=== PATIENT | male | born 1965 | race Caucasian/White ===

== ENCOUNTER → 2018-02-28 07:03 | Day surgery (SDC) | payer OTHER, MEDICARE ==
[~2018-02-28 07:03] MED LIST: Heparin 2 UNITS/ML IVPREMIX* 3,000 ML IV ONE; Heparin(*) 1000 UNIT/ML 10 ML VIAL CATH LAB IV ONE; Iohexol 350 (CONTRAST) 200 ML MDV IV ONE; LORazepam TAB(*) 1 MG ONE; Lidocaine 1% INJ* 10 MG/ML 30 ML SDV ONE; Midazolam* 1 MG/ML 5 ML VIAL (5 MG) ONE; fentaNYL* 50 MCG/ML 2 ML VIAL (100 MCG VIAL) ONE; nitroGLYCERIN DRIP* 0 MCG/0 ML BTL ONE
--- NOTE | 2018-02-28 12:56 | PN ---
Progress Note - Progress Note Date of Service: 02/28/18 SOAP: Subjective: No pain other chronic back pain exacerbated by laying flat. No groin pain. Objective: Selected Entries 02/28/18 12:31 Pulse Rate 60 Heart Rate 60 Respiratory 6 Rate Blood Pressure 116/63 (mmHg) Blood Pressure 76 Mean O2 Sat by Pulse 100 Oximetry NAD, AAO x 3 Abd is soft, NT Left groin is soft, NT Dressing is CDI 2+ bilateral DEVELOPMENT EDITOR, +doppler pulses BL pedal arteries BLE are neuromuscular intact Assessment: 52 YOM status pelvic and BLE arteriography, balloon angioplasty of right Internal Iliac Artery and percutaneous Minx closure of left CF arteriotomy. A "figure of 8" stitch was tied over the arteriotomy site to control "ooze". Plan: 1. DC to home. 2. How to remove the suture in 1 week was discussed with the patient's who states she comfortable removing it. If she is not comfortable then they will return to radiology next week for suture removal. 3. Continue antiplatelet therapy as before. 4. Mostly normal arteriography indicates that the patient's symptoms are more likely neurogenic claudication than due to arterial insufficiency.
[2018-02-28 14:05] VITALS: BP 127/76
--- NOTE | 2018-02-28 16:38 | RAD ---
CPT II Codes: G9500 Procedure(s) performed: 1. Diagnostic pelvic and bilateral lower extremity arteriogram. 2. Balloon angioplasty of the right internal iliac artery. 3. Percutaneous Minx closure device to the left common femoral arteriotomy. Date of service: February 28, 2018 Indication for procedure: Bilateral lower extremity claudication in a vasculopath Comparison: 8 hourly PVR dated December 16, 2017 that demonstrates borderline claudication values and arrange waveforms of the bilateral dorsalis pedis arteries and CTA with runoff dated December 20, 2017. The diagnostic utility the CTA was limited due to calcified atherosclerosis of the visualized arteries causing x-ray beam attenuation. Contrast: 120 mL Omnipaque 350 Fluoroscopy Time: 11.1 minutes Vessels Accessed: Percutaneous access was obtained with ultrasound guidance in the left common femoral artery in the retrograde direction towards the heart. Catheter arteriography, with the catheter tip located within the lumen of the following arteries, was performed at the left external iliac artery, aorta, right common iliac artery and right superficial femoral artery. Anesthesia: Conscious sedation with IV Fentanyl and Versed as well as local 1% lidocaine injected locally at the arteriotomy site. Conscious sedation time: Timeout: 924 hours Case end: 1056 hours Total conscious sedation time: 1 hour and 32 minutes Additional medications: * IV heparin 3000 Units to achieve a goal ACT of 250-300. * The patient received 1 mg of p.o. Ativan prior to the onset of the procedure. PROCEDURE NOTE AND INTRAPROCEDURAL IMAGING FINDINGS: Immediately prior to the procedure the patient signed consent after thoroughly discussing all risks, benefits and alternative therapies. The patient was positioned on the fluoroscopy table in the supine position and the bilateral groins were shaved, prepped and the patient was draped in standard sterile fashion. Using fluoroscopic imaging the location of the left common femoral head was marked externally with a skin marker on the patient's groin. Utilizing sonographic guidance and palpation, the left common femoral artery was cannulated overlying the femoral head with an 18-gauge needle. An ultrasound image was saved. A 0.035" wire was slowly and smoothly advanced into the common femoral artery under fluoroscopic imaging. No buckling of the wire was visualized to indicate dissection. With the wire securing percutaneous arterial access, the needle was removed and a 5-Beninese SideArm access sheath was advanced under fluoroscopic control into the common femoral artery retrograde into the left external iliac artery securing access. Contrast arteriography with the tip of the sheath in the left external iliac artery was performed demonstrating appropriate common femoral arteriotomy above the femoral bifurcation and below the inferior epigastric artery. Although there was prior CTA imaging, calcified atherosclerosis prevented reliable determination of exact degree stenoses and/or occlusions and catheter arteriography was necessary. To further characterize and exactly locate the extent of atherosclerotic disease involving the pelvis and bilateral lower extremities diagnostic catheter arteriography was necessary. A 5-Beninese multiside hole flush catheter was advanced to the infrarenal abdominal aorta and contrast arteriography was performed demonstrating adequate patency of the lower abdominal aorta with apparent in-line flow to the proximal femoral arteries bilaterally. The patient's transpedicular screws on the right partially obscure the right common iliac artery. There is stenosis at the origin of the right internal iliac artery similar to what was seen on the prior CTA. The wire was reinserted and a 5-Beninese C2 catheter was advanced until the tip was in the ostium of the right common iliac artery and contrast arteriography was performed and a right anterior oblique projection to better visualize the right common iliac artery. This demonstrated adequate patency of the right common iliac artery and stenosis at the origin of the right internal iliac artery. A hydrophilic Glidewire was reinserted and advanced into the right superficial femoral artery. Over the wire the 5-Beninese catheter was advanced until the tip was in the proximal right superficial femoral artery. Contrast arteriography was performed demonstrating adequate patency of the proximal femoral profundus and proximal superficial femoral artery. Over the wire the catheter was advanced more inferiorly to the mid-level superficial femoral artery and contrast arteriography was performed demonstrating very mild stenosis at the right superficial femoral artery as it courses through Brent's canal but brisk in-line flow is maintained into the popliteal artery. Contrast arteriography was performed of the popliteal artery and proximal infrapopliteal arteries demonstrating in-line flow through the popliteal artery into the tibioperoneal trunk and briskly filling the peroneal and posterior tibial arteries proximally. The right anterior tibial artery becomes occluded at approximately one third down the right lower leg. Finally the catheter arteriography was performed of the distal right lower leg and foot demonstrating dominant in-line flow provided by the posterior tibial artery supplemented by the peroneal artery. There is delayed filling of the distal anterior tibial artery and dorsalis pedis artery provided by collateralized filling from the other 2 infrapopliteal arteries. Eventually the pedal loop fills in its entirety primarily supplied by the posterior tibial artery. The wire was reinserted and the 5-Beninese catheter was drawn back to the ostium of the right internal iliac artery. Additional arteriograms were performed demonstrating stenosis at the origin of the right internal iliac artery. The artery was catheterized with a 0.035 inch wire. Over this wire a 6-Beninese 45 cm length sheath was advanced up to the bifurcation of the right iliac arteries. Over the wire a 5 mm x 80 mm Passeo 35 balloon was inflated. The balloon was slowly inflated up to its nominal pressure ultimately be inflated to just below its burst pressure corresponding to an approximate diameter measurement of 5.6 mm. 2 address vasospasm the balloon remained inflated for a total of 4 minutes. The balloon was removed and a second arteriography performed with the sheath tip in the right common iliac artery demonstrated wide patency into the right internal iliac artery and a branch vessels. Over the wire the long 6-Beninese sheath was replaced with a standard 11 cm length 6-Beninese sheath for the purpose of performing left lower extremity arteriography. The left common femoral artery is adequately patent providing brisk in-line flow into the femoral profundus and left superficial femoral artery. The left superficial femoral artery exhibits several foci of stenoses measuring less than 50% (series 15.2 image 14). More inferiorly the left superficial femoral artery provides brisk in-line flow into the popliteal artery. The popliteal artery provides in-line flow into the tibioperoneal trunk, proximal anterior tibial arteries and the peroneal and posterior tibial arteries fill adequately. At approximately the distal one third left lower leg the left anterior tibial artery becomes occluded. Arteriography of the lower leg and left foot is similar to the contralateral side in that the posterior tibial artery provides the dominant in-line flow to the foot supplemented by the relatively small left peroneal artery. There is delayed filling of the distal left anterior tibial artery and dorsalis pedis artery by reconstituted flow, early provided by the posterior tibial artery and its distal branches. Through the side arm of the access sheath arteriography of the left common femoral artery demonstrated an appropriate puncture of the common femoral artery above the bifurcation and below the inferior epigastric artery. After an appropriate resterilization of the arteriotomy and exchange for new sterile gloves, a Minx closure device was deployed at the common femoral arteriotomy and pressure held for approximately 15 minutes. There were no signs of bleeding at the percutaneous arterial access site and the site was dressed with sterile gauze and Tegaderm. The patient tolerated the procedure well and was transferred to angiography holding bay for standard post procedural observation. SUMMARY OF PROCEDURE, IMAGING FINDINGS AND INTERVENTIONS PERFORMED: 1. Diagnostic studies performed: * Percutaneous access was obtained with ultrasound guidance in the left common femoral artery in the retrograde direction towards the heart. * Catheter arteriography, with the catheter tip located within the lumen of the following arteries, was performed at the left external iliac artery, aorta, right common iliac artery and right superficial femoral artery. * Catheter arteriography was performed of the lower abdominal aorta, bilateral iliac arterial system and through both lower extremity arteries to the forefoot bilaterally. * At the conclusion of the procedure arteriography was performed through the side arm of the access sheath to image the distal left external iliac artery, left common femoral artery and proximal superficial femoral artery and femoral profundus. 2. Interpretation of diagnostic studies performed: * High-grade stenosis at the origin of the right internal iliac artery. * Mild scattered stenoses in the bilateral superficial femoral arteries overall appearing more severe in the left but stenoses still are less than 50%. * Bilaterally the anterior tibial arteries become occluded at approximately the distal one third lower legs. Arterial flow to the feet is primarily provided by the posterior tibial arteries supplemented by the relatively diminutive peroneal arteries. * The distal anterior tibial arteries and dorsalis pedis arteries exhibit delayed filling due to collateralized flow primarily provided by the PTAs. * Arteriography performed for the purpose of deploying a percutaneous arterial closure device demonstrates adequately patent left external iliac artery, common femoral artery and proximal superficial femoral artery and femoral profundus. 3. Surgical interventions performed: * Balloon angioplasty of the proximal right internal iliac artery with a 5 mm x 80 mm Passeo 35 balloon. The balloon was inflated just below burst pressure corresponding to a diameter measurement of 5.6 mm and remain inflated for minimum of 3 minutes. * The patient is not currently experiencing critical limb ischemia and the more widespread lower extremity claudication as well as hip and buttock claudication is not secondary to occluded anterior tibial arteries bilaterally. Therefore no intervention was performed in the bilateral anterior tibial arteries. * Closure of the right common femoral artery was achieved with a Minx closure device followed by 15 minutes of gentle manual pressure. 4. Interpretation of interventions performed: * Final arteriography demonstrated improved brisk flow through the right internal iliac artery. Plan: 1. The patient will continue the Aspirin 81 mg p.o. daily and Plavix 75 mg p.o. daily that he was taking prior to the intervention related to his coronary artery disease. 2. Clinical and imaging follow-up according to standard Interventional Radiology protocol. 3. The patient is mostly normal arteriogram indicate to me that his leg pain is more likely related to neurogenic claudication as opposed to arterial insufficiency. This was discussed with the patient and his prior to discharge.
== END | disposition home or self-care (01) ==
LOC: CHICATH 07:03
PROVIDERS: ATTEND Radiology Diagnostic Radiology
DX: I70.223 Atherosclerosis of native arteries of extremities with rest pain, bilateral legs (principal); I73.9 Peripheral vascular disease, unspecified; I10 Essential (primary) hypertension; F17.210 Nicotine dependence, cigarettes, uncomplicated; Z95.0 Presence of cardiac pacemaker
CPT/HCPCS: 75716; 75736; 76937; 85347; 99156; 99157; A9270-GY; C1725; C1760; C1769; C1887; C1894; J1644; J2250; J3010

== ENCOUNTER 2019-06-23 06:23 | Day surgery (SDC) | payer OTHER, MEDICARE ==
--- NOTE | 2019-06-17 12:13 | HP ---
PREOPERATIVE HISTORY AND PHYSICAL: DATE OF SURGERY/ADMISSION: 06/23/19 DATE OF OFFICE VISIT/ENCOUNTER: 06/01/19 ATTENDING SURGEON: Jane Grey MD ([place]) * (DICTATED BY YEIMI WARREN) POLICE COMMISSIONER: Dr. Ernandez. PROCEDURE: Trigger release, right long and pinky fingers. HISTORY OF PRESENT ILLNESS: This is a 53-year-old male who complains of triggering and locking in his middle and small finger for the past 6 weeks. He does not recall any injury. The symptoms are gradually getting worse. He is having a lot of trouble making a fist and holding onto things. He would like to proceed with surgical intervention for these trigger fingers. He has some other medical problems including disability from chronic pain from a neck injury years ago and is on chronic narcotics. He also has history of cardiac issues and we will obtain clearance from Dr. Ernandez prior to proceeding with surgery. PAST MEDICAL HISTORY: 1. Neck/back injury in 2000 from a fall at work. 2. Diabetes. 3. Hypertension. 4. Atrial fibrillation. 5. History of myocardial infarction at age 41. 6. PTSD. PAST SURGICAL HISTORY: 1. Five surgeries on back/neck, ORIF, length of spine. 2. Pacemaker placement in 2007. 3. Four cardiac stents. 4. Seven knee surgeries. 5. Left hand finger surgery. 6. Bilateral carpal tunnel releases. 7. Bilateral shoulder rotator cuff repair. CURRENT MEDICATIONS: 1. Aspirin 81 mg daily. 2. Clopidogrel bisulfate 75 mg daily. 3. Dilaudid 4 mg 1 tab b.i.d. 4. Hydromorphone HCl ER 16 mg daily. 5. Lovaza 1 g 6 daily. 6. Magnesium oxide 400 mg 2 tabs daily. 7. Metoprolol succinate ER 25 mg twice a day. 8. Multivitamin daily. 9. Nitrostat 0.4 mg p.r.n. 10. NovoLog 100 units/mL 10 units daily. 11. Percocet 10/325 one q.4 hours daily. 12. Ramipril 2.5 mg daily. 13. Repatha SureClick q.2 weeks. 14. Valium 5 mg 2 tabs q.h.s. 15. Vitamin D3 1000 units daily. ALLERGIES: DILTIAZEM, ELIQUIS, METOPROLOL, MORPHINE, PENICILLIN, PLETAL, cause nausea and hives. FAMILY MEDICAL HISTORY: Diabetes, heart disease, hypertension, cancer, stroke. SOCIAL HISTORY: The patient is disabled from back/neck injury. He is a current smoker. He reports smoking about 5 cigarettes a day, he has done so for the past 34 years. He denies recreational drug use and does not drink alcohol. REVIEW OF SYSTEMS: Positive for peripheral neuropathy, chronic back pain, chest pain, heart palpitations, history of fracture, weakness, easy bruising, weight loss. Otherwise negative for general, cephalic, cardiovascular, respiratory, GI, , musculoskeletal, integumentary, endocrine, neurologic, and hematologic symptoms. Infectious Disease: Negative for MRSA, hepatitis C, HIV. PHYSICAL EXAMINATION GENERAL: Well-developed, well-nourished 53-year-old male, in no acute distress. VITAL SIGNS: Height 5 feet 9 inches, weight 200 pounds, pulse rate 68, blood pressure 140/80. HEENT: Normocephalic, atraumatic. Pupils are equal, round, and reactive to light and accommodation. Extraocular movements are intact. Throat is clear. NECK: Supple. No palpable lymph nodes. PULMONARY: Lungs are clear to auscultation bilaterally. No wheezes, rales, or rhonchi. CARDIOVASCULAR: Regular rate and rhythm. S1, S2. No murmurs, rubs, or gallops. No edema. ABDOMEN: Positive bowel sounds. Soft, nontender. NEUROLOGIC: Alert and oriented x3. Cranial nerves II through XII are intact. MUSCULOSKELETAL: On exam of his right hand, he has tenderness to palpation at the A1 marvin of both the middle and the small fingers. He has triggering and locking as he moves the fingers through range of motion. Skin is intact. Neurovascular function is intact. IMPRESSION: Trigger finger right middle and small finger. PLAN: The patient is scheduled to undergo trigger releases right long and pinky fingers with Dr. Grey on 06/23/19. He will return to the office 10 days postop for followup and suture removal. He will use Toradol for postoperative pain control as he is already on chronic narcotics at home. YEIMI WARREN [id number]/[facility] #: [id number] ELANA
[~2019-06-23 06:23] MED LIST changes: +Buffered Lidocaine 1% SYRIN* 1 ML/SYRINGE INTRADERM ONE; -Heparin 2 UNITS/ML IVPREMIX* 3,000 ML IV ONE; -Heparin(*) 1000 UNIT/ML 10 ML VIAL CATH LAB IV ONE; -Iohexol 350 (CONTRAST) 200 ML MDV IV ONE; -LORazepam TAB(*) 1 MG ONE; +Lactated Ringers 1000 ML Bag* 1,000 ML IV SCH; -Lidocaine 1% INJ* 10 MG/ML 30 ML SDV ONE; -Midazolam* 1 MG/ML 5 ML VIAL (5 MG) ONE; -fentaNYL* 50 MCG/ML 2 ML VIAL (100 MCG VIAL) ONE; -nitroGLYCERIN DRIP* 0 MCG/0 ML BTL ONE
[2019-06-23] MEDS ORDERED: fentaNYL* 50 MCG/ML 2 ML VIAL (100 MCG VIAL) ONE (07:15)
[2019-06-23] MEDS ORDERED: Midazolam* 1 MG/ML 2 ML VIAL (2 MG) ONE (07:15)
[2019-06-23] MEDS ORDERED: Lidocaine 1% INJ* 10 MG/ML 30 ML SDV ONE (07:16)
[2019-06-23] MEDS ORDERED: Lidocaine 2% PF * 5 ML VIAL ONE (07:37)
[2019-06-23] MEDS ORDERED: Propofol* 10 MG/ML 20 ML BTL ONE (07:37)
[2019-06-23] MEDS ORDERED: Ketorolac INJ* 30 MG/ML 1 ML VIAL ONE (07:37)
[2019-06-23] MEDS ORDERED: Naloxone* 0.4 MG/ML 1 ML VIAL IV PRN (07:53)
[2019-06-23] MEDS ORDERED: diPHENhydraMINE IV* 50 MG/ML 1 ml VIAL (BENADRYL) IV PRN (07:53)
[2019-06-23] MEDS ORDERED: Acetaminophen TAB* 325 MG PO PRN (07:53)
[2019-06-23] MEDS ORDERED: Levalbuterol 0.63MG/3ML NEB* UNIT OF USE INH PRN (07:53)
[2019-06-23] MEDS ORDERED: Ondansetron INJ* 2 MG/ML VIAL IV PRN (07:53)
[2019-06-23 08:15] VITALS: BP 119/72
--- NOTE | 2019-06-23 14:06 | OP ---
DATE OF OPERATION: 06/23/19 [facility] DATE OF : 67 SURGEON: Jane Grey MD DIRECTOR OF EARLY CHILDHOOD EDUCATION: YEIMI Ochoa ANESTHESIA: Local MAC. PRE-OP DIAGNOSIS: Trigger fingers, right, middle, and small finger. POST-OP DIAGNOSIS: Trigger fingers, right, middle, and small finger. OPERATIVE PROCEDURE: Trigger finger release right, middle, and small fingers. ESTIMATED BLOOD LOSS: Zero. TOURNIQUET TIME: About 15 minutes. INDICATION FOR PROCEDURE: Emiliano is a 53-year-old male who has triggering and locking of the small and middle finger of the right hand. He has failed conservative treatment and presents for trigger finger release right small and middle finger. DESCRIPTION OF PROCEDURE: The patient was brought to the operating room and was given a sedation anesthetic and a local infiltration total of 10 cc of 1% plain lidocaine in the palm of his right hand. The skin of his right hand and forearm was prepped and draped in the usual sterile fashion. The hand and forearm were exsanguinated and the tourniquet elevated to 250 mmHg. A transverse incision was made, centered over the A1 marvin of the middle finger and the small finger of the right hand. We dissected bluntly through the subcutaneous tissue down to both A1 pulleys. They were both incised longitudinally, completely releasing the flexor tendons, which were in good condition. The wounds were irrigated and the skin edges reapproximated with 4-0 nylon suture. The wounds were dressed with Xeroform, 4x4s, Webril, and an Naseem wrap. The patient tolerated the procedure well and was brought to the recovery room in good condition. [id number]/[facility] #: [id number] [facility] CENTERRoman
== END 2019-06-23 08:37 | disposition home or self-care (01) ==
LOC: OREAST 06:23
PROVIDERS: ATTEND Orthopaedic Surgery
DX: M65.331 Trigger finger, right middle finger (principal); M65.351 Trigger finger, right little finger; G89.29 Other chronic pain; M54.2 Cervicalgia; E11.8 Type 2 diabetes mellitus with unspecified complications; I10 Essential (primary) hypertension; I48.91 Unspecified atrial fibrillation; F43.10 Post-traumatic stress disorder, unspecified; F17.210 Nicotine dependence, cigarettes, uncomplicated; I25.2 Old myocardial infarction; Z95.0 Presence of cardiac pacemaker; Z79.891 Long term (current) use of opiate analgesic; Z79.4 Long term (current) use of insulin; Z79.01 Long term (current) use of anticoagulants; Z98.890 Other specified postprocedural states; Z88.0 Allergy status to penicillin; Z88.8 Allergy status to other drugs, medicaments and biological substances
CPT/HCPCS: J1885; J2250; J2704; J3010